=== PATIENT | male | born 1950 | race Hispanic/Latino ===

== ENCOUNTER 2020-09-20 22:05 | Emergency (ER) | payer MEDICARE ==
[~2020-09-20] VITALS: Ht 167.6 cm; Wt 56.7 kg
[2020-09-21 00:21] VITALS: BP 140/89
[2020-09-21 02:23] VITALS: BP 118/68
== END 2020-09-21 02:30 | disposition home or self-care (01) ==
LOC: EDH 22:51
DX: S80.212A Abrasion, left knee, initial encounter (principal); W18.39XA Other fall on same level, initial encounter; Y93.01 Activity, walking, marching and hiking; Y92.480 Sidewalk as the place of occurrence of the external cause; Y99.8 Other external cause status
CPT/HCPCS: 73562